=== PATIENT | female | born 1960 | race Asian ===

== ENCOUNTER → 2024-10-03 13:04 | Outpatient (CLI) | payer OTHER, SELFPAY ==
--- NOTE | 2024-10-03 13:06 | DI.RAD.S_ITS ---
PROCEDURE: FL BARIUM SWALLOW INDICATIONS: belching despite omeprazole, cough; assess for hiatal hernia COMPARISON: None. FINDINGS: Function: There is normal esophageal peristalsis. [id number] gastroesophageal reflux is noted during the study with contrast reflux to mid esophageal lumen. There is normal transit of a calibrated barium tablet through the esophagus into the stomach. Morphology: Air-contrast images demonstrate normal mucosal morphology. Single contrast views show no esophageal strictures, extrinsic mass effects, or diverticula. Limited images of the stomach demonstrate normal appearance. IMPRESSION: Mild gastroesophageal reflux. No hiatal hernia. Intraluminal filling defect or external mass compression. No high-grade strictures. Dictated by: Cedrick Vergara M.D. on 10/03/2024 at 14:55 Approved by: Cedrick Vergara M.D. on 10/03/2024 at 14:56
== END ==
LOC: RAD 13:06
PROVIDERS: PCP Family Medicine; Referring Provider Internal Medicine; Visit Provider Internal Medicine
DX: R05.3 Chronic cough (principal); R14.2 Eructation; K21.9 Gastro-esophageal reflux disease without esophagitis
CPT/HCPCS: 74220